=== PATIENT | female | born 1940 | race Caucasian/White ===

== ENCOUNTER 2016-11-20 09:51 | Day surgery (SDC) | payer MEDICARE ==
[~2016-11-20 09:51] MED LIST: AUGMENTIN875 MG PO; COMPAZINE10 MG PO; COUMADIN DPS3 MG PO; DULCOLAX-DPS10 MG PR; DUONEB DPS3 ML IH; I-VITE TABLET1 EACH PO; KLOR-CON M2020 ME1 PO; LIPITOR DPS40 MG PO; LOPRESSOR DPS50 MG PO; LOVENOX DP40 MG/0.4 SQ; MAALOX DPS30 ML PO; MILK OF MAGNESI10 ML PO; PROVENTIL2.5 MG/3 M IH; SENOKOT S1 TAB PO; SURFAK DPS240 MG PO; THERMOTABS PO; TYLENOL DP650 MG/20. PO; [UNRECOGNIZED DRUG - OTHER] PO
== END 2016-11-20 16:05 | disposition home or self-care (01) ==
DX: T84.218A Breakdown (mechanical) of internal fixation device of other bones, initial encounter (principal); E78.5 Hyperlipidemia, unspecified; J42 Unspecified chronic bronchitis; Z79.891 Long term (current) use of opiate analgesic; Z79.899 Other long term (current) drug therapy; Z79.01 Long term (current) use of anticoagulants; Z87.891 Personal history of nicotine dependence

== ENCOUNTER 2016-12-15 16:28 | Inpatient (IN) | payer MEDICARE ==
[~2016-12-15] VITALS: Ht 182.9 cm; Wt 48.1 kg
--- NOTE | 2016-12-16 15:54 | ER ---
ADMIT: 12/15/2016 RM/LOC: 315 [facility] MR#: [id number] [address] [address] [place] [address] Emergency Room Report SEX: F AGE: 76 : 1940 DATE: 12/15/2016 This 76-year-old female transferred from [facility] with decreased mental status. According to the nurses, this started sometime around noon. The patient is obtunded and unable to communicate. Therefore not able to obtain history or review of systems. PHYSICAL EXAMINATION: GENERAL: Revealed a cachectic, ill-appearing, obtunded, 76-year-old female, in respiratory distress. LUNGS: Had some mild scattered wheezes throughout. CARDIOVASCULAR: Tachycardia with no murmur. ABDOMEN: Appeared soft. Nontender. Hypoactive bowel tones. EXTREMITIES: Without clubbing, cyanosis, or edema. LABORATORY DATA: White count was significant for 13.3, hemoglobin 11.7. INR 1.53. CT of the head showed small suspicious finding in the basal ganglion which may represent metastasis. CTA of the chest revealed left lower lobe consolidation, prominent hilar adenopathy. The patient was being admitted with hypercapnia which responded to BiPAP and pneumonia and likely metastatic cancer. Shalom Parker MD/ henrique JOB #: [id number] CC: Ubaldo Zhu MD, Attending Physician Ubaldo Zhu MD, Family Physician
--- NOTE | 2016-12-20 10:12 | CO ---
ADMIT: 12/15/2016 RM/LOC: 315 [facility] MR#: [id number] [address] [address] LAUREN [place]ERR[place] [address] Consultation SEX: F AGE: 76 : 1940 DATE OF CONSULTATION: 12/18/2016 ATTENDING PHYSICIAN: Ubaldo Zhu CONSULTING PHYSICIAN: Talita Hutson APRN TIME IN: 0900 hours. TIME OUT: 0920 hours. REASON FOR CONSULTATION: Supportive care consultation was requested by Dr. Zhu for discussion of goals for care. HISTORY OF PRESENT ILLNESS: Lauren is a 76-year-old female with history of oxygen-dependent COPD, dementia as well as metastatic rectal cancer. She has been living at [facility]. She was hospitalized here in May of 2016 after sustaining a fall that resulted in fracture of her humerus, olecranon, and left acetabulum. At that time, she underwent an ORIF of the left displaced proximal humerus fracture and displaced olecranon fracture. She then was readmitted in July for evaluation of her hardware because it was noted upon her followup with Orthopedics that the hardware was displaced and was actually protruding from the shoulder area. At that time, she was also complaining of back pain and Neurosurgery was consulted and a CT scan revealed compression fractures. Supportive care consultation was requested during that hospital stay for discussion of goals in terms of how aggressive they wanted to be with interventions. Please see my dictation from July 20, 2016, for full details of that consultation. We did discuss goals and also the patient's code status at that time. She eventually discharged back to her nursing facility, however, was readmitted on December 15 with hypoxia and decreased mentation. She is found to have healthcare-acquired pneumonia and met sepsis criteria. She remains in the ICU receiving treatment. Speech Therapy has been following her and made her n.p.o. status due to concerns for aspiration. A CT of the chest was done while here that showed hepatic and pulmonary metastases. Additionally, a CT of the head was done that is suspicious for metastases in the brain as well. Due to her complexities, supportive care consultation was requested to discuss goals for care. In terms of advanced directives, the patient is a do not resuscitate/do not intubate status. The patient's next of kin legally is her Santos Herrera whose phone #[phone] and [phone]. However, it is of note that the patient's is in very poor health and is in a nursing facility at this time, therefore he is unavailable to discuss goals for care. The next of kin legally after the patient's would be the patient's daughter, Rabia Khan whose phone #[phone]. The patient does not have a living will or POLST form on file. She is a do not resuscitate/do not intubate status. Symptomatically, the patient is obviously demented. She appears very weak and debilitated. She is nonsensical in her speech. Overall, she appears to have ADMIT: 12/15/2016 RM/LOC: 315 [facility] MR#: [id number] [address] [place] [phone] [place] [address] Consultation SEX: F AGE: 76 : 1940 declined significantly since I last saw her in July. PAST MEDICAL HISTORY: COPD, DVT, metastatic rectal cancer, atrial fibrillation, dementia, multiple fractures with repair. SURGICAL HISTORY: Cholecystectomy and cataract surgery. ALLERGIES: THE PATIENT HAS NO KNOWN MEDICATION ALLERGIES. CURRENT MEDICATIONS: Please see the patient's MAR for specific routes and dosages. Her current medications are as follows. 1. Vancomycin. 2. Maalox. 3. Lopressor. 4. Remeron. 5. Morphine. 6. Zosyn. 7. DuoNeb. 8. Heparin. 9. Senokot. 10.MiraLax. 11.Wartrace. 12.Dulcolax. 13.Compazine. 14.NovoLog. 15.Decadron. 16.Apresoline. 17.Glutose. 18.Glucagon. 19.D5 normal saline. 20.D50. 21.Tylenol. 22.Coumadin. SOCIAL HISTORY: The patient is . She has a past history of tobacco use. She does not use alcohol or illicit drugs. FAMILY HISTORY: Reviewed per chart and noncontributory. FUNCTIONAL REVIEW: I am unaware of what her functional review was prior to admission. It looks like back in my dictation in July, her palliative performance scale was a 30% during her hospital stay. Currently, she remains mostly in the bed. She is total care. She is not taking any oral intake. She is confused. Her current palliative performance scale is a 10%-20%. Additionally, she has lost a significant amount of weight since July. It appears that her weight was around 130 pounds in July, however, she now is weighing around 105 pounds. ADMIT: 12/15/2016 RM/LOC: 315 [facility] MR#: [id number] [address] [place] [phone] LAUREN HERRERA [place] [id number] Consultation SEX: F AGE: 76 : 1940 REVIEW OF SYSTEMS: A 10-point review of systems was attempted. However, due the patient's mentation this was unable to be obtained. PHYSICAL EXAMINATION: GENERAL: The patient is examined in the bed. She is in no acute distress. VITAL SIGNS: Temperature 96.9, pulse 99, respirations 26, blood pressure 119/64, and oxygen 96% on room air. HEENT: Head is normocephalic. Pupils are 3 mm and brisk. Oral mucosa pink and moist with fair dentition. NECK: Supple. RESPIRATORY: Respirations are equal, nonlabored at rest. Lungs are diminished throughout. CARDIOVASCULAR: Irregular without murmurs, rubs, or gallops. 1+ bilateral lower extremity edema noted. GASTROINTESTINAL: Soft, nontender. Bowel sounds are positive. MUSCULOSKELETAL: Generalized weakness. INTEGUMENTARY: Skin turgor is fair. NEUROLOGIC: Disoriented x3. She will not follow commands. PSYCHIATRIC: Obviously demented. Overall calm during my exam. DIAGNOSTIC DATA: Sodium 129, potassium 2.5, BUN 11, creatinine 0.3, total protein 7.1, albumin 3.3. WBC 6.1, hemoglobin 10.6, hematocrit 32.0, and platelets are 234. IMPRESSION: 1. Physical debility. 2. Dementia. 3. Dysphagia. 4. Moderate protein calorie malnutrition. 5. Fatigue. 6. Malaise. 7. Abnormal weight loss. 8. Acute respiratory failure. 9. Metastatic rectal cancer. 10.Healthcare-acquired pneumonia. 11.Sepsis. 12.Palliative care. 13.The patient is a do not resuscitate/do not intubate. PLAN: I did attempt to reach the patient's daughter, Mandy initially as this was listed as a person to contact, however, I could not reach her. Eventually, I was able to reach the patient's oldest daughter and next of kin, Rabia via telephone. I did update her on the patient's overall status and the fact that we need to discuss goals for the time ahead. She is aware of the patient's widely metastatic cancer diagnosis and now is also aware of her swallowing issues, and the recommendation for n.p.o. status. I am very clear with her that at this time the patient's primary care provider does feel that ADMIT: 12/15/2016 RM/LOC: 315 [facility] MR#: [id number] 26[address] [facility] [address] [place] [phone] LAUREN [place] [address] Consultation SEX: F AGE: 76 : 1940 hospice may be a very reasonable option for the time ahead. She verbalizes understanding of this. Overall, she seems a little overwhelmed which is understandable given the patient's status. She agrees to meet with me this afternoon at 1:30. Dr. Zhu is made aware of this meeting time as his nursing. We would like to thank Dr. Zhu for the invitation to participate in this patient's care. Total consultation time was 20 minutes from nine 0900 hours to 0920 hours with 12 minutes from 0900 to 0912 spent on the phone with the patient's next of kin discussing goals for care. There will be an addendum to this consultation in the chart later this afternoon after I meet with the family to discuss goals further. Talita Hutson APRN/ henrique JOB #: [id number] CC: Ubaldo Zhu, Attending Physician Ubaldo Zhu, Family Physician
--- NOTE | 2016-12-21 16:17 | HP ---
ADMIT: 12/15/2016 RM/LOC: 315 [facility] MR#: [id number] [address] [address] [place] [address] History and Physical SEX: F AGE: 76 : 1940 DATE OF SERVICE: 12/15/2016 HISTORY OF PRESENT ILLNESS: Ms. Lauren Herrera in a 76-year-old female with past medical history significant for oxygen-dependent COPD, history of DVT status post IVC filter placement, impaired glucose tolerance, rectal cancer, treated with chemotherapy, irregular heart rate and rhythm suggestive of atrial fibrillation, dementia with debility, and history of multiple fractures, who resides at the [facility] and was transferred to our [facility] for concerns about decreased mentation as well as hypoxia. The patient is currently obtunded, and information is obtained from various sources including the facility as well as paramedics. stated that the patient was in her usual state of health this afternoon at lunchtime when she made the comment in the dining room that she appreciated the way that the chairs were sent out. At baseline, it appears that the patient does have some dementia, but can get about quite independently. The patient was then found in her room at approximately 3 and was noted to have decreased mental status as well as hypoxic in the ED. She was transferred to [facility] for concern of severe sepsis. In the emergency room, she was noted to have heart rate in the 100s, respirations in the 35 range and shallow, hypoxic to the 80s with appropriate blood pressure in the 140s/50s. She was provided with Narcan as well as supplemental oxygen. This did not improve her saturation, so she was started on BiPAP. She also received 2 g of Rocephin. She did not receive any IV fluids. PAST MEDICAL HISTORY: COPD, history of DVT with IVC filter, impaired glucose, rectal cancer treated with chemotherapy, questionable atrial fibrillation, but documented irregular heart rate and rhythm, dementia with debility, and multiple fractures. PAST SURGICAL HISTORY: Rectal cancer unknown if she did have surgery for this or just chemotherapy. Cholecystectomy, hysterectomy, and cataract removal. MEDICATIONS: Home medications at her facility are significant for: 1. Tylenol. 2. Albuterol sulfate nebulizer solution. 3. Benadryl tablet. 4. Breo Ellipta aerosol powder. 5. Compazine. 6. Coumadin. 7. Dulcolax suppository. 8. DuoNeb solution. 9. Fleet mineral oil enema. 10.Horseheads. 11.Klor-Con 20 mEq. 12.Lortab. 13.Maalox. 14.Milk of magnesia suspension. 15.MiraLAX powder. 16.Remeron tablet. ADMIT: 12/15/2016 RM/LOC: 315 [facility] MR#: [id number] [address] [place] [id number] [place] [address] History and Physical SEX: F AGE: 76 : 1940 17.Senokot. 18.Surfak capsule. 19.Multivitamin. ALLERGIES: THE PATIENT DOES NOT HAVE ANY KNOWN MEDICAL ALLERGIES PER HER RECORDS. FAMILY HISTORY: From old notes here in the [facility] system, it appears that her mother did have diabetes and her father did have heart disease. No other family history is known. SOCIAL HISTORY: The patient is a former smoker. All her records indicate that she does not use alcohol or any illicit drugs. As mentioned previously, she does live at [facility]. REVIEW OF SYSTEMS: Unable to obtain review of systems secondary to the patient's obtunded state. PHYSICAL EXAMINATION: VITAL SIGNS: When examining the patient, the patient had a heart rate in the one teens, averaging about 110 on the monitor, her respiration rate was in the 20s, she was saturating at 90% on BiPAP, her blood pressure was 163/75. Her most recent temperature was 97 Fahrenheit. GENERAL: The patient is wearing the BiPAP. She does not appear to be in any distress when wearing the BiPAP. She is subtended and is not interactive. She does not respond to voice or sternal rub. HEENT: Normocephalic and atraumatic. She does not open her eyes to commands. She does not appear to have any open lesions on her skin of her head or neck. LUNGS AND CHEST: She has a right-sided port in her upper chest. She has decreased breath sounds throughout and very shallow breaths taken. The exam is limited by the noise of the BiPAP machine. She does have an irregularly irregular heart rate and rhythm. It is approximately 110 beats per minute. No murmurs were detected. ABDOMEN: Soft and nondistended. She does have adequate bowel sounds. She does not acknowledge my presence when I am pushing on her belly. EXTREMITIES: She has very thin and cachectic appearing extremities both upper and lower. Her pulses are intact, but they are symmetric. No edema is noted. NEUROLOGIC: Status unable to assess at this point in time. She is obtunded. Seffner Coma Scale is approximately 3. PSYCH: Unable to assess at this time. LABS AND IMAGING: Initial CBC demonstrates a white count of 13.2, with 2% band and neutrophils. She does have hemoglobin of 11.9. Platelets of 262. On her CMP, it is notable for a sodium of 133, chloride of 95, carbon dioxide of 33, glucose of 150, creatinine is 0.3, and calcium of 9.0. Her LFTs are significant for an alkaline phosphatase of 163. AST of 165 and ALT of 167. She does have a lactic acid that is normal at 0.6. She has a UA that is negative for any evidence of infection, but does demonstrate 1+ protein as well as hyaline casts. Her INR is subtherapeutic at 1.53. Her initial ABG was ADMIT: 12/15/2016 RM/LOC: 315 [facility] MR#: [id number] [address] [address] [place] [address] History and Physical SEX: F AGE: 76 : 1940 7.1/96/117/35. Second blood gas after initiation of BiPAP is 7.3/74/69/38. Blood culture is pending at this point in time. She did have chest x-ray that demonstrated no evidence of pneumonia. The lungs are noted to be hyperinflated with scattered fibrotic changes. A CTA of the chest was completed given the presumed sudden nature of her decompensation and demonstrated that she has abnormal mediastinal and right hilar adenopathy of the soft tissue in the bronchi of the right concerning for metastatic adenopathy. She also has a consolidation in the left posterior costophrenic angle as well as multiple small pulmonary nodules consistent with a pulmonary metastatic disease. She also has hepatic metastatic disease as well and compression deformities of T12 and L1. A head CT was also completed and did demonstrate that she does have no evidence of an acute stroke, but a tiny high density structure lateral to the right basal ganglia with possibly some surrounding edema. ASSESSMENT AND PLAN: Ms. Lauren Herrera is a 76-year-old female with past medical history significant for chronic obstructive pulmonary disease, history of DVT with IVC filter in place as well as rectal cancer and possible atrial fibrillation all in the setting of dementia and debility, who presented with altered mental status as well as hypoxia. In the emergency room, she was found to have initial ABG of 7.1, 96, 117, and 33. 1. Acute hypercarbic and hypoxic respiratory failure. The patient does have a history of COPD and has been oxygen dependent. She also appears to have some metastatic disease within her lungs at this time. She does have a small consolidation in the left costophrenic angle. There is a possibility that she has developing pneumonia. She does not have any evidence of pulmonary emboli on CTA. Given that she resides in a facility, we will place her on empiric antibiotic therapy for healthcare- acquired pneumonia that will include vancomycin 1.5 mg/kg IV every 12 hours as well as Zosyn 4.5 g q.8 hours. Pharmacy will be consulted to help manage these as needed. We will continue the BiPAP at this point in time and obtain ABGs regularly. Family was called and daughter, Mandy, who is the second emergency contact, states that the patient would not want to be intubated under any circumstance. She understands that we are using the BiPAP mask, and the next step would be to intubate the patient should she fail this therapy. The patient's daughter states again no intubation and would like us to try the mask overnight, they will be available in the morning for the patient. We will obtain a CBC as well as CMP in the morning as well as a chest x-ray to evaluate for possible blooming of the pneumonia. It is possible that she also has a postobstructive type pneumonia that could be developing given the extent of her metastatic disease. 2. Sepsis secondary to possible healthcare-acquired pneumonia of the left costophrenic angle. She does have all 4 of the SIRS criteria with a bit of consolidation noted in the lungs. The UA is negative. Her blood cultures are pending at this point in time. Her lactic acid is normal at this point in time. She does also have evidence of end-organ failure given the decreased level of consciousness as well as hyperglycemia and the hepatitis. It is noted that the hepatocellular hepatitis type picture ADMIT: 12/15/2016 RM/LOC: 315 [facility] MR#: [id number] [address] [place] [id number] [place] [address] History and Physical SEX: F AGE: 76 : 1940 could be secondary to the metastatic disease that is seen in the liver as well. We will provide her with 1.5 L bolus of normal saline as she did not receive any fluids within the emergency department. We will start her on the vanc and Zosyn as above. We will obtain a CBC in the morning. We will continue to follow her progress. 3. Acute encephalopathy most likely secondary to the hypoxia as well as possible sepsis. Management as above. We will also place her on delirium precautions given the fact that she has underlying dementia. 4. History of rectal cancer with concern for metastatic disease of both the lungs and brain. It is unclear what family knows or the patient knows about this. This will be discussed in the morning. 5. Hyperglycemia. The patient does have a history of impaired glucose tolerance. We will place her on very low-dose sliding scale insulin q.6 hours while she is n.p.o. and Accu-Cheks q.6 hours as well. 6. Irregular heart rate with diagnosis per the group home records of atrial fibrillation. We will continue her on her home warfarin and obtain an INR in the morning. She is currently subtherapeutic with an INR of 1.5. Goal for atrial fibrillation would be an INR of 2 to 3. 7. Code status. The records from the group home state that the patient is DNR. Her daughter, Mandy, was called to clarify whether the patient would be agreeable to breathing tube should she need it. The patient would not want to be intubated even if she would need it. This was clarified with the daughter. See above discussion for the acute hypoxic respiratory and hypercarbic respiratory failure. 8. Deep venous thrombosis prophylaxis. We will continue the home warfarin as well as SCDs and TEDs while she is here. Adri Barksdale MD Resident / Ubaldo Zhu MD / henrique JOB #: [id number] CC: Ubaldo Zhu, Attending Physician Ubaldo Zhu, Family Physician
--- NOTE | 2016-12-28 13:15 | DS ---
ADMIT: 12/15/2016 RM/LOC: 315 [facility] MR#: [id number] 2620 [facility] [address] [place] [address] General Discharge Summary SEX: F AGE: 76 : 1940 ADMISSION DATE: 12/15/2016 DISCHARGE DATE: 12/18/2016 FINAL DIAGNOSES: 1. 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 2. Metastatic rectal cancer. 3. Severe malnutrition. 4. Respiratory failure. 5. Chronic obstructive pulmonary disease. 6. Pneumonia, healthcare associated. 7. History of deep vein thrombosis with IVC filter. REASON FOR ADMISSION: This is a 76-year-old female, who presented with mental status changes. She presented with confusion, was found to have an elevated CO2. CTA of her chest showed multiple pulmonary nodules and pneumonia and some COPD. The patient was very confused and not able to converse normally. CT also revealed what looked like a brain metastases on head CT. See H and P for further details. HOSPITAL COURSE: The patient was admitted. Initially, she was going to be placed on BiPAP and then did okay, oxygen saturations did alright. Her pCO2 came down, pH normalized. After we found the brain lesion, we felt it best to put her on Decadron, this may be the cause of respiratory failure. After evaluating her overall situation, it did not look like she was going to be able to swallow because of her encephalopathy. We hoped this would improve with the Decadron, but it really did not throughout her stay. Consulted Supportive Care to help us. We tried to contact her POARabia, but this was extraordinarily difficult and actually did not get a hold of her until the . We did get a hold of Mandy on the day of admission, but then had ADMIT: 12/15/2016 RM/LOC: 315 [facility] MR#: [id number] [address] [address] [place] [address] General Discharge Summary SEX: F AGE: 76 : 1940 difficulty getting hold of her for a few days after that. We did treat the patient with some antibiotics and respiratory support. By the day of discharge, it became fairly apparent that she was not going to be a candidate for chemotherapy for her metastatic cancer and she was not going to be able to swallow because of her dysphagia. So therefore, her treatment options were essentially zero. So, the next option we set her up for discharge to the hospice care, this was done and on the , arrangements were made to have her discharged to skilled care facility at [facility], where she was before. It should be noted she had some hypokalemia and this was replaced. DISCHARGE INSTRUCTIONS: She will be discharged with her Ativan and morphine medications. Ubaldo Zhu MD/ henrique JOB #: [id number] CC: Ubaldo Zhu MD, Attending Physician Ubaldo Zhu MD, Family Physician
== END 2016-12-18 14:35 | disposition short-term general hospital (02) | DRG 871 ==
LOC: ER 16:28 → 3ICU 18:00
PROVIDERS: ADMIT Internal Medicine
DX: A41.9 Sepsis, unspecified organism (principal); J18.9 Pneumonia, unspecified organism; G93.6 Cerebral edema; G93.40 Encephalopathy, unspecified; J96.01 Acute respiratory failure with hypoxia; J96.02 Acute respiratory failure with hypercapnia; E44.0 Moderate protein-calorie malnutrition; C78.01 Secondary malignant neoplasm of right lung; C78.02 Secondary malignant neoplasm of left lung; R13.10 Dysphagia, unspecified; C78.7 Secondary malignant neoplasm of liver and intrahepatic bile duct; J44.0 Chronic obstructive pulmonary disease with (acute) lower respiratory infection; C79.31 Secondary malignant neoplasm of brain; Z68.1 Body mass index [BMI] 19.9 or less, adult; R44.3 Hallucinations, unspecified; R65.20 Severe sepsis without septic shock; Z99.81 Dependence on supplemental oxygen; R73.02 Impaired glucose tolerance (oral); Z86.718 Personal history of other venous thrombosis and embolism; Z85.048 Personal history of other malignant neoplasm of rectum, rectosigmoid junction, and anus; I48.91 Unspecified atrial fibrillation; F03.90 Unspecified dementia, unspecified severity, without behavioral disturbance, psychotic disturbance, mood disturbance, and anxiety; Z79.01 Long term (current) use of anticoagulants; Z87.891 Personal history of nicotine dependence; R40.2433 Glasgow coma scale score 3-8, at hospital admission; Z66 Do not resuscitate